=== PATIENT | male | born 1945 | race Caucasian/White ===

== ENCOUNTER 2018-07-01 11:47 | Emergency (ER) | payer MEDICARE, OTHER ==
--- NOTE | 2018-07-01 12:28 | ED Physician Documentation ---
History of Present Illness - Stated complaint Stated Complaint: DIZZY - Chief complaint Chief Complaint: Neuro - History obtained from History obtained from: Patient - History of Present Illness Timing: Other (This is a 73-year-old gentleman with history of hypertension who over the last couple weeks has been feeling out of sorts especially with exertion that was much worse today. He was diagnosed with vertigo in the office and given maneuvers to do which have not been helpful. He denies specifically a spinning sensation. Today he just felt more fatigued and dizzy when trying to mow the lawn and exercise this morning. He does have a history of bradycardia, he saw a advertising writer for it and for preoperative clearance couple of years ago without specific findings.) Review of Systems Constitutional: reports: Reviewed and negative Nose: reports: Reviewed and negative Cardiac: reports: Reviewed and negative Respiratory: reports: Reviewed and negative PD PAST MEDICAL HISTORY - Past Medical History Past Medical History: Yes Cardiovascular: Hypertension Endocrine/Autoimmune: Type 2 diabetes - Present Medications Home Medications: Ambulatory Orders Medication Instructions Recorded Confirmed Aspirin Chewable [St Greg 81 mg 07/01/18 Aspirin] Losartan [Cozaar] 100 mg 07/01/18 Pioglitazone [Actos] 30 mg 07/01/18 SITagliptin [Januvia] 100 mg 07/01/18 metFORMIN [Glucophage] 1,000 mg 07/01/18 - Allergies Allergies/Adverse Reactions: Allergies Allergy/AdvReac Type Severity Reaction Status Date / Time No Known Drug Allergies Allergy Verified 07/01/18 11:58 - Social History Does the pt drink ETOH?: No Does the pt have substance abuse?: No - Family History Family history: reports: Non contributory PD ED PE NORMAL - Vitals Vital signs reviewed: Yes - General General: Alert and oriented X 3, No acute distress - HEENT HEENT: PERRL, EOMI - Neck Neck: Supple, no meningeal sign, No bony TTP - Cardiac Cardiac: No murmur, Other (Bradycardic) - Respiratory Respiratory: No respiratory distress, Clear bilaterally - Abdomen Abdomen: Non tender - Extremities Extremities: No edema, No calf tenderness / cord - Neuro Neuro: Alert and oriented X 3, Normal speech - Psych Psych: Normal mood, Normal affect Results - Vitals Vitals: Vital Signs - 24 hr 07/01/18 11:54 Temperature 36 C L Heart Rate 42 L Respiratory 20 Rate Blood Pressure 130/49 L O2 Saturation 99 Oxygen O2 Source Room air - EKG (time done) 1159 Rate: Rate (enter#) (63) Rhythm: NSR [place]: Normal Intervals: RBBB Ischemia: Normal ST segments Computer interpretation: Agree with computer 1241 Rate: Rate (enter#) (33) Rhythm: Other (2-1 AV block with one P wave, for every other QRS complex) Intervals: RBBB Computer interpretation: Agree with computer - Tele (time rhythm occurred) 1213 Telemetry / rhythm strip: Rate (40), Other (Nonspecific 2-1 block with bradycardia, 2 P waves for each QRS complex.) - Rads (name of study) 1v cxr Radiology: EMP read contemporaneously (normal) PD MEDICAL DECISION MAKING - ED course ED course: 73-year-old gentleman with nonspecific dizziness, likely related to symptomatic bradycardia from a 2-1 AV block. His mentation and blood pressure are normal and he is asymptomatic in bed. Labs are unremarkable. His advertising writer, Dr. Barbour at [facility] was paged for consultation and likely transfer at 12:57 PM. The [facility] transfer center actually took me up with a different advertising writer and a hospitalist who agreed with the plan and he was accepted by Dr. Brumfield to [facility] at 1330 and cobras were completed. I was notified around 2:20 PM that [facility] was actually full and they could not accept the patient. After discussion with the patient and his we called [facility] to see if they were open. They were not, neither [place] nor over either. He was accepted at [facility] by Dr. Almeida and cobras were again completed/updated. - Sepsis Event Vital Signs: Vital Signs - 24 hr 07/01/18 11:54 Temperature 36 C L Heart Rate 42 L Respiratory 20 Rate Blood Pressure 130/49 L O2 Saturation 99 Oxygen O2 Source Room air Departure - Departure Disposition: 02 Transfer Acute Care Hosp Clinical Impression: Bradycardia with 31-40 beats per minute, Dizziness Condition: Serious
[2018-07-01 12:41] LABS: BASOPHILS % (AUTO) 0.7 %; EOSINOPHILS # (AUTO) 0.2 10^3/uL (0.0-0.7); EOSINOPHILS % (AUTO) 2.5 %; HGB - HEMOGLOBIN 12.5 g/dL (14.0-18.0); LYMPHOCYTES # (AUTO) 1.4 10^3/uL (1.5-3.5); LYMPHOCYTES % (AUTO) 22.8 %; MEAN CORPUSCULAR HEMOGLOBIN 31.1 pg (27.0-31.0); MEAN CORPUSCULAR HGB CONC 33.4 g/dL (32.0-36.0); MEAN CORPUSCULAR VOLUME 93.1 fL (80.0-94.0); MEAN PLATELET VOLUME 8.2 fL (7.4-11.4); MONOCYTES # (AUTO) 0.7 10^3/uL (0.0-1.0); MONOCYTES % (AUTO) 11.5 %; NEUTROPHILS % (AUTO) 62.5 %; PLT - PLATELET COUNT 239 10^3/uL (130-450); RED BLOOD COUNT 4.01 10^6/uL (4.70-6.10); RED CELL DISTRIBUTION WIDTH 14.1 % (12.0-15.0); WHITE BLOOD COUNT 6.3 x10^3/uL (4.8-10.8)
[2018-07-01 12:51] LABS: ALBUMIN 4.3 g/dL (3.2-5.5); ALBUMIN/GLOBULIN RATIO 1.8 (1.0-2.2); BILIRUBIN,TOTAL 0.5 mg/dL (0.2-1.0); CALCIUM 9.1 mg/dL (8.5-10.3); TOTAL PROTEIN 6.7 g/dL (6.7-8.2)
--- NOTE | 2018-07-01 14:05 | XRAY Report ---
Reason: damon cardia, Procedure Date: 07/01/2018 Accession Number: [id number] / [id number] Procedure: XR - Chest 1 View X-Ray CPT Code: 04742 FULL RESULT: EXAM: CHEST RADIOGRAPHY EXAM DATE: 07/01/2018 01:55 PM. CLINICAL HISTORY: Damon cardia. COMPARISON: None. TECHNIQUE: 1 view. FINDINGS: Lungs/Pleura: No focal opacities evident. No pleural effusion. No pneumothorax. Mediastinum: Heart size is normal. Mild aortic arch atherosclerotic calcification. Other: None. IMPRESSION: Negative for an acute cardiopulmonary process. RADIA
[2018-07-01 17:39] VITALS: BP 148/56
== END 2018-07-01 18:18 | disposition short-term general hospital (02) ==
LOC: ED 11:47
DX: R00.1 Bradycardia, unspecified (principal); R42 Dizziness and giddiness; I44.1 Atrioventricular block, second degree; I45.10 Unspecified right bundle-branch block; I10 Essential (primary) hypertension; E11.9 Type 2 diabetes mellitus without complications; Z79.82 Long term (current) use of aspirin; Z79.4 Long term (current) use of insulin
CPT/HCPCS: 36415; 71045; 80053; 83690; 84443; 84484; 85025; 93005; 99284; 99285

== ENCOUNTER 2022-01-31 07:15 | Outpatient (CLI) | payer MEDICARE, OTHER ==
[2022-01-31 14:31] LABS: ESTIMATED AVERAGE GLUCOSE 189 mg/dL (70-100); HEMOGLOBIN A1c% 8.2 % (4.27-6.07)
[2022-01-31 16:01] LABS: CREATININE,URINE 57.7 mg/dL; MICROALBUM/CREATININE RATIO,UR 13.9 ug/mg (<30.0); MICROALBUMIN,URINE 0.8 mg/dL (0-300.0)
[2022-01-31 16:27] LABS: ALBUMIN 4.2 g/dL (3.2-5.5); ALBUMIN/GLOBULIN RATIO 1.8 (1.0-2.2); ALKALINE PHOSPHATASE 40 IU/L (42-121); ALT ALANINE AMINOTRANSFERASE 16 IU/L (10-60); AST ASPARTATE AMINOTRANSFERASE 17 IU/L (10-42); BILIRUBIN,TOTAL 0.6 mg/dL (0.2-1.0); BUN - BLOOD UREA NITROGEN 20 mg/dL (6-20); CALCIUM 9.4 mg/dL (8.5-10.3); CARBON DIOXIDE - CO2 27 mmol/L (21-32); CHLORIDE 100 mmol/L (101-111); CHOL/HDL RATIO 1.9 (<5.0); CHOLESTEROL 156 mg/dL; CREATININE 0.9 mg/dL (0.6-1.2); GFR - MDRD 82 (>89); GLUCOSE 159 mg/dL (70-100); HDL CHOLESTEROL 82 mg/dL; LDL CHOLESTEROL,CALCULATED 61 mg/dL; LDL/HDL RATIO 0.7 (<3.6); POTASSIUM 4.7 mmol/L (3.5-5.0); SODIUM 135 mmol/L (135-145); TOTAL PROTEIN 6.6 g/dL (6.7-8.2); TRIGLYCERIDES 66 mg/dL; VLDL CHOLESTEROL 13 mg/dL
== END 2022-01-31 07:16 | disposition home or self-care (01) ==
LOC: LAB.S 07:15
PROVIDERS: ATTEND Registered Nurse
DX: E11.9 Type 2 diabetes mellitus without complications (principal)
CPT/HCPCS: 36415; 80053; 80061; 82043; 82570; 83036; 83721

== ENCOUNTER 2023-12-08 12:32 | Outpatient (CLI) | payer MEDICARE, OTHER ==
--- NOTE | 2023-12-08 17:10 | Ultrasound Report ---
PROCEDURE: Pelvic Limited INDICATIONS: INGUINAL PAIN TECHNIQUE: Real-time transabdominal scanning was performed of the inguinal region, with image documentation. COMPARISON: None. FINDINGS: Likely right inguinal hernia containing fat measuring 1.1 x 0.9 cm.. IMPRESSION: Likely right inguinal hernia containing fat measuring 1.1 x 0.9 cm. Reviewed by: Ronak Zamora MD on 12/08/2023 5:09 PM PDT Approved by: Ronak Zamora MD on 12/08/2023 5:09 PM PDT Station ID: [id number]
== END 2023-12-08 12:33 | disposition home or self-care (01) ==
LOC: DI 12:32
PROVIDERS: ATTEND Registered Nurse
DX: R10.2 Pelvic and perineal pain (principal); M25.551 Pain in right hip

== ENCOUNTER 2023-12-08 12:34 | Outpatient (CLI) | payer MEDICARE, OTHER ==
--- NOTE | 2023-12-09 11:07 | XRAY Report ---
PROCEDURE: Hip w/Pelvis 2-3V RT INDICATIONS: HIP PAIN TECHNIQUE: 2 views of the hip were acquired. COMPARISON: None. FINDINGS: Bones: No fractures or dislocations. No suspicious bony lesions. 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 Soft tissues: No suspicious soft tissue calcifications or masses. IMPRESSION: No acute bony abnormality. Mild degenerative joint disease. Reviewed by: Esequiel Anaya MD on 12/09/2023 11:05 AM PDT Approved by: Esequiel Anaya MD on 12/09/2023 11:05 AM PDT Station ID: [id number]
== END 2023-12-08 12:35 | disposition home or self-care (01) ==
LOC: DI 12:34
PROVIDERS: ATTEND Registered Nurse
DX: R10.2 Pelvic and perineal pain (principal); M16.11 Unilateral primary osteoarthritis, right hip; M25.551 Pain in right hip

== ENCOUNTER 2024-01-13 20:18 | Outpatient (CLI) | payer MEDICARE, OTHER | END 2024-01-13 23:59 | disposition critical access hospital (66) | LOC: EMS 20:18 | DX: E11.649 Type 2 diabetes mellitus with hypoglycemia without coma (principal); Z79.84 Long term (current) use of oral hypoglycemic drugs | CPT/HCPCS: A0425; A0429 ==

== ENCOUNTER 2024-01-13 20:55 | Emergency (ER) | payer MEDICARE, OTHER ==
--- NOTE | 2024-01-13 21:04 | ED Physician Documentation ---
History of Present Illness - Stated complaint Stated Complaint: LOW BLOOD SUGAR - History obtained from History obtained from: Patient, EMS - Additonal information Additional information: The patient is brought to the emergency department by EMS for chief complaint of hypoglycemia. The patient apparently is feeling fine today and this evening, After eating dinner with his , he began to feel a little sweaty. He went outside to put the barbecue away and could not figure out how to [facility]. He did not have any physical deficits. The patient states that he does not remember the medics arriving, but medics state that they were called by the after she found him wandering around outside confused. Medics found the patient's blood sugar to be 35. They have given him about 200 cc of D10 and state that he is doing much better, is no longer confused, and her sugars have been in the 200s. He is a diabetic, not on insulin. Takes glipizide, metformin, Januvia, and pioglitazone. He has recently, about a week and a half ago, had a dose increase in his glipizide, due to hemoglobin A1c of 9. The patient states that so far this dose increase has been fine although he is not always taking it each day. The patient states today was not an unusual day at all. He ate like he usually does and had a couple rum and diet Cokes before dinner, which is not unusual. PD PAST MEDICAL HISTORY - Past Medical History Cardiovascular: Hypertension Endocrine/Autoimmune: Type 2 diabetes - Past Surgical History Past Surgical History: Yes HEENT: Other - Present Medications Home Medications: Ambulatory Orders Medication Instructions Recorded Confirmed Aspirin Chewable [St Greg 81 mg PO DAILY 07/01/18 Aspirin] Losartan [Cozaar] 100 mg PO DAILY 07/01/18 Pioglitazone [Actos] 30 mg PO DAILY 07/01/18 SITagliptin [Januvia] 100 mg PO DAILY 07/01/18 metFORMIN [Glucophage] 1,000 mg PO DAILY 07/01/18 - Allergies Allergies/Adverse Reactions: Allergies Allergy/AdvReac Type Severity Reaction Status Date / Time No Known Drug Allergies Allergy Verified 01/13/24 21:04 - Social History Does the pt smoke?: No Smoking Status: Former smoker Does the pt drink ETOH?: No Does the pt have substance abuse?: No - Immunizations Immunizations are current?: Yes PD ED PE NORMAL - Vitals Vital signs reviewed: Yes - General General: Alert and oriented X 3, No acute distress, Well developed/nourished - HEENT HEENT: Atraumatic, PERRL, EOMI, Moist mucous membranes - Neck Neck: Supple, no meningeal sign - Cardiac Cardiac: RRR, No murmur - Respiratory Respiratory: No respiratory distress, Clear bilaterally - Abdomen Abdomen: Soft, Non tender, Other (moderate distention) - Derm Derm: Normal color, Warm and dry, No rash - Extremities Extremities: No deformity, No edema - Neuro Neuro: Alert and oriented X 3, [place] 2-12 intact, Normal speech, Other (No gross deficits otherwise.) - Psych Psych: Normal mood, Normal affect Results - Vitals Vitals: Oxygen O2 Source Room air - Labs Labs: Laboratory Tests 01/13/24 01/13/24 21:30 21:30 WBC 11.8 H RBC 3.82 L Hgb 11.5 L Hct 37.0 L MCV 96.9 H MCH 30.1 MCHC 31.1 L RDW 14.2 Plt Count 272 MPV 9.7 Neut # (Auto) 9.7 H Lymph # (Auto) 1.1 L Dent # (Auto) 0.8 Eos # (Auto) 0.1 Baso # (Auto) 0.1 Absolute Nucleated RBC 0.00 Nucleated RBC % 0.0 Sodium 136 Potassium 4.0 Chloride 101 Carbon Dioxide 26 Anion Gap 9.0 BUN 30 H Creatinine 1.0 Estimated GFR (MDRD) 72 L Glucose 163 H Calcium 10.0 Total Bilirubin 0.4 AST 14 ALT 12 Alkaline Phosphatase 57 Total Protein 6.8 Albumin 4.4 Globulin 2.4 Albumin/Globulin Ratio 1.8 Lipase 93 H PD Medical Decision Making - ED course Complexity details: reviewed results, re-evaluated patient, considered differential, d/w patient, d/w family ED course: The patient was very well-appearing in the emergency department reported feeling completely back to normal. He was worked up with laboratory studies and I discussed with the patient and his that he would be observed here for at least the next few hours to make sure that his sugars are stable. The pt was observed in the ED for several hours, and found to have sugars in the upper 100's to 220 on last measurement. His labs otherwise were unremarkable, and the pt was feeling well. I felt he was stable for d/c home. We have discussed the usual indications for return, and the need to discuss dosing of his diabetes meds with his doctor if this happens repeatedly. Departure - Departure Disposition: 01 Home, Self Care Clinical Impression: Hypoglycemia Condition: Stable Instructions: ED Diabetes Hypoglycemia Oral Agent Comments: Your blood sugars have been great while you have been here and actually, are creeping up a little bit. Your last blood sugar was 220. You are safe to go home at this point in time. You have demonstrated stable sugars for the last 4 hours and we do not at this point need to worry about your sugar dropping down overnight. If you have repeated episodes of low blood sugar, you will need to talk to your doctor about your medication regimen and whether the dosing and medications you are on are still right for you. Please be sure you get plenty of good food to eat. Forms: PCP List Discharge Date/Time: 01/14/24 01:06
[2024-01-13 21:18] VITALS: O2SAT 100
[2024-01-13 21:36] LABS: BASOPHILS # (AUTO) 0.1 10^3/uL (0.0-0.1); BASOPHILS % (AUTO) 0.4 %; EOSINOPHILS # (AUTO) 0.1 10^3/uL (0.0-0.7); EOSINOPHILS % (AUTO) 0.6 %; HGB - HEMOGLOBIN 11.5 g/dL (14.0-18.0); LYMPHOCYTES # (AUTO) 1.1 10^3/uL (1.5-3.5); LYMPHOCYTES % (AUTO) 9.1 %; MEAN CORPUSCULAR HEMOGLOBIN 30.1 pg (27.0-31.0); MEAN CORPUSCULAR HGB CONC 31.1 g/dL (32.0-36.0); MEAN CORPUSCULAR VOLUME 96.9 fL (80.0-94.0); MEAN PLATELET VOLUME 9.7 fL (7.4-11.4); MONOCYTES # (AUTO) 0.8 10^3/uL (0.0-1.0); MONOCYTES % (AUTO) 6.6 %; NEUTROPHILS # (AUTO) 9.7 10^3/uL (1.5-6.6); PLT - PLATELET COUNT 272 10^3/uL (130-450); RED BLOOD COUNT 3.82 10^6/uL (4.70-6.10); RED CELL DISTRIBUTION WIDTH 14.2 % (12.0-15.0); WHITE BLOOD COUNT 11.8 x10^3/uL (4.8-10.8)
[2024-01-13 21:50] LABS: ALBUMIN 4.4 g/dL (3.2-5.5); ALBUMIN/GLOBULIN RATIO 1.8 (1.0-2.2); BILIRUBIN,TOTAL 0.4 mg/dL (0.2-1.0); TOTAL PROTEIN 6.8 g/dL (6.4-8.9)
[2024-01-13 23:17] VITALS: BP 131/58
== END 2024-01-14 01:06 | disposition home or self-care (01) ==
LOC: EDUNIT# → ED 20:55
DX: E11.649 Type 2 diabetes mellitus with hypoglycemia without coma (principal); Z79.84 Long term (current) use of oral hypoglycemic drugs; Z79.82 Long term (current) use of aspirin; Z79.899 Other long term (current) drug therapy; Z87.891 Personal history of nicotine dependence
CPT/HCPCS: 36415; 80053; 83690; 85025; 99283; 99284